=== PATIENT | female | born 1990 | race Caucasian/White ===

== ENCOUNTER 2020-09-10 15:15 | Emergency (ER) | payer OTHER ==
[~2020-09-10 15:15] MED LIST: BENTYL 20MG TAB20 MG PO; LODINE CAP 300300 MG PO; ZOFRAN ODT 4 MG4 MG PO
[2020-09-10 15:53] LABS: RED BLOOD COUNT 4.71 M/UL (4.00-5.10); WHITE BLOOD COUNT 9.7 K/UL (4.5-11.0)
[2020-09-10 16:18] LABS: BUN/CREATININE RATIO 20 (0-10)
[2020-09-10] MEDS ORDERED: PEPCID20 MG PO (17:57)
[2020-09-10] MEDS ORDERED: ZOFRAN ODT 4 MG4 MG PO (17:57)
[2020-09-10] MEDS ORDERED: BENTYL 10MG CAP10 MG PO (17:57)
== END 2020-09-10 18:25 | disposition home or self-care (01) ==
LOC: ER1 15:15
PROVIDERS: Nurse Practitioner
DX: R10.13 Epigastric pain (principal); R11.0 Nausea; R10.11 Right upper quadrant pain; Z98.84 Bariatric surgery status; Z90.710 Acquired absence of both cervix and uterus; Z90.49 Acquired absence of other specified parts of digestive tract
CPT/HCPCS: 80053; 81001; 83605; 83690; 85025; 93005; 96372; 96374; 96375; 99284; J0500; J1885; J2405; Q9967

== ENCOUNTER → 2022-02-11 | Day surgery (SDC) | payer OTHER ==
[~2022-02-11] MED LIST changes: +BENTYL 10MG CAP10 MG PO; +HYDROCODON-ACE1 EAC4 PO; +PEPCID20 MG PO
== END | disposition home or self-care (01) ==
LOC: OR 07:57
DX: K80.10 Calculus of gallbladder with chronic cholecystitis without obstruction (principal)
CPT/HCPCS: C1729; J0690; J1100; J1885; J2001; J2405; J2704; J2710